=== PATIENT | male | born 1995 | race Caucasian/White ===

== ENCOUNTER 2019-08-03 08:06 | Emergency (ER) | payer OTHER ==
[~2019-08-03] VITALS: Ht 172.7 cm; Wt 68.0 kg
[~2019-08-03 08:06] MED LIST: ALBUTEROL0.09 MG/A2 INH; ANTIBIOTIC; ASENDIN25 MG PO; BACTRIM DS 8001 TA1 PO; BACTROBAN OINT22 GM PO; BIAXIN500 MG PO; CLARITIN10 MG PO; CLINDAMYCIN HC150 MG PO; CLINDAMYCIN HC300 MG PO; CLINDAMYCIN150 MG PO; DEPRESSION PILL; FLEXERIL10 MG PO; HYDROCODONE BIT1 T11 PO; KEFLEX500 MG PO; LAMICTAL25 MG PO; LITHIUM CARBON600 MG; LORATADINE; MOTRIN400 MG PO; MOTRIN600 MG PO; MOTRIN800 MG PO; NKHM PO; PREDNICOT20 MG PO; PREDNISONE20 MG PO; ULTRAM50 MG PO; XANAX1 MG PO; ZANTAC150 MG PO; ZITHROMAX Z PA250 MG PO; ZITHROMAX250 MG PO; ZYRTEC10 MG PO; [UNRECOGNIZED DRUG - REMARK]
[2019-08-03 08:08] VITALS: BP 121/79
[2019-08-03] MEDS ORDERED: CLARITIN10 MG PO (08:27)
[2019-08-03] MEDS ORDERED: BACITRACIN 500U30 GM OPH (08:27)
== END 2019-08-03 08:31 | disposition home or self-care (01) ==
LOC: ED 08:06
DX: S80.862A Insect bite (nonvenomous), left lower leg, initial encounter (principal); S80.861A Insect bite (nonvenomous), right lower leg, initial encounter; J45.909 Unspecified asthma, uncomplicated; F17.200 Nicotine dependence, unspecified, uncomplicated; Z88.0 Allergy status to penicillin; W57.XXXA Bitten or stung by nonvenomous insect and other nonvenomous arthropods, initial encounter; Y93.89 Activity, other specified; Y92.89 Other specified places as the place of occurrence of the external cause; Y99.8 Other external cause status

== ENCOUNTER 2019-12-11 12:15 | Emergency (ER) | payer OTHER ==
[~2019-12-11] VITALS: Ht 172.7 cm; Wt 63.5 kg
[~2019-12-11 12:15] MED LIST changes: +BACITRACIN 500U30 GM OPH
[2019-12-11 12:24] VITALS: BP 127/77
[2019-12-11] MEDS ORDERED: ULTRAM50 MG PO (15:10)
== END 2019-12-11 15:14 | disposition home or self-care (01) ==
LOC: ED 12:15
DX: S62.396A Other fracture of fifth metacarpal bone, right hand, initial encounter for closed fracture (principal); J45.909 Unspecified asthma, uncomplicated; K21.9 Gastro-esophageal reflux disease without esophagitis; Z88.0 Allergy status to penicillin; W22.01XA Walked into wall, initial encounter; Y93.89 Activity, other specified; Y92.89 Other specified places as the place of occurrence of the external cause; Y99.8 Other external cause status

== ENCOUNTER 2020-06-27 13:45 | Emergency (ER) | payer SELFPAY ==
[2020-06-27 13:46] VITALS: BP 119/84
[2020-06-27 14:29] LABS: BASO # 0.1 10*3/uL (0.0-0.1); BASO % 0.5 % (0.0-1.0); EOS # 0.2 10*3/uL (0.0-0.4); EOS % 1.6 % (1.0-4.0); HEMATOCRIT 42.4 % (42.0-52.0); LYMPH # 1.8 10*3/uL (1.3-4.4); LYMPH % 18.4 % (27.0-41.0); MEAN CELL VOLUME 87.8 fl (80.0-94.0); MEAN CORPUSCULAR HGB 30.2 pg (27.0-31.0); MEAN CORPUSCULAR HGB CONC 34.4 g/dl (33.0-37.0); MEAN PLATELET VOLUME 10.2 fl (9.6-12.3); MONO # 0.6 10*3/uL (0.1-1.0); MONO % 6.5 % (3.0-9.0); NEUT # 7.2 10*3/uL (2.3-7.9); NEUT % 72.7 % (47.0-73.0); PLATELET COUNT AUTOMATED 267 10*3/uL (130-400); RED BLOOD COUNT 4.83 10*6/uL (4.50-5.90); RED CELL DISTRI WIDTH 11.5 % (0-14.5); WHITE BLOOD COUNT 9.8 10*3/uL (4.8-10.8)
[2020-06-27 14:32] LABS: BILIRUBIN NEGATIVE (NEGATIVE); BLOOD NEGATIVE (NEGATIVE); CLARITY CLEAR (CLEAR); COLOR YELLOW (YELLOW); GLUCOSE NEGATIVE (NEGATIVE); KETONE TRACE (NEGATIVE); LEUKO ESTERASE NEGATIVE (NEGATIVE); NITRITE NEGATIVE (NEGATIVE)
[2020-06-27 14:36] LABS: RBC 0-2 rbc/hpf (0-2); WBC 0-2 wbc/hpf (0-5)
[2020-06-27 14:37] LABS: BACTERIA TRACE; EPITHELIAL CELLS 0-2
[2020-06-27 14:39] LABS: URINE AMPHETAMINES < 1000 (1000ng/ml); URINE BARBITURATES < 200 (200ng/ml); URINE BENZODIAZEPINES < 200 (200ng/ml); URINE CANNABINOIDS (THC) > 50 (50ng/ml); URINE COCAINE < 300 (300ng/ml); URINE METHADONE < 300 (300ng/ml); URINE OPIATES < 300 (300ng/ml); URINE PHENCYCLIDINE < 25 (25ng/ml)
[2020-06-27 14:45] LABS: ALBUMIN 3.8 gm/dl (3.1-4.5); ALKALINE PHOSPHATASE 60 U/L (45-117); BUN 14 mg/dl (7-24); CHLORIDE 107 mmol/L (98-107); CREATININE 0.98 mg/dL (0.70-1.30); LIPASE 84 U/L (73-393); POTASSIUM 3.8 mmol/L (3.5-5.1); SGOT/AST 17 IU/L (3-35); SGPT/ALT 22 U/L (12-78); SODIUM 135 mmol/L (136-145); TOTAL PROTEIN 7.6 gm/dL (6.4-8.2)
== END 2020-06-27 15:09 | disposition home or self-care (01) ==
LOC: ED 13:45
PROVIDERS: Emergency Medicine
DX: R10.9 Unspecified abdominal pain (principal); J45.909 Unspecified asthma, uncomplicated; F31.9 Bipolar disorder, unspecified; K21.9 Gastro-esophageal reflux disease without esophagitis; Z88.0 Allergy status to penicillin; Z79.899 Other long term (current) drug therapy

== ENCOUNTER 2021-05-02 19:26 | Emergency (ER) | payer OTHER ==
[~2021-05-02] VITALS: Ht 172.7 cm; Wt 68.0 kg
[2021-05-02 19:38] VITALS: BP 133/73
[2021-05-02] MEDS ORDERED: MEDROL DOSEPAK4 MG PO (21:17)
== END 2021-05-02 21:35 | disposition home or self-care (01) ==
LOC: ED 19:26
DX: L25.9 Unspecified contact dermatitis, unspecified cause (principal); F17.200 Nicotine dependence, unspecified, uncomplicated; Z88.0 Allergy status to penicillin; Z79.899 Other long term (current) drug therapy; Z98.890 Other specified postprocedural states

== ENCOUNTER 2021-05-26 18:52 | Emergency (ER) | payer OTHER ==
[~2021-05-26] VITALS: Ht 172.7 cm; Wt 72.6 kg
[~2021-05-26 18:52] MED LIST changes: +MEDROL DOSEPAK4 MG PO
[2021-05-26 19:08] VITALS: BP 127/79
[2021-05-26] MEDS ORDERED: NAPROSYN500 MG PO (20:35)
[2021-05-26] MEDS ORDERED: METHOCARBAMOL750 M1 PO (20:35)
== END 2021-05-26 20:53 | disposition home or self-care (01) ==
LOC: ED 18:52
DX: S39.011A Strain of muscle, fascia and tendon of abdomen, initial encounter (principal); Z88.0 Allergy status to penicillin; X50.0XXA Overexertion from strenuous movement or load, initial encounter; Y93.89 Activity, other specified; Y92.89 Other specified places as the place of occurrence of the external cause; Y99.9 Unspecified external cause status

== ENCOUNTER 2024-10-28 12:00 | Emergency (ER) | payer SELFPAY ==
[~2024-10-28] VITALS: Ht 172.7 cm; Wt 68.0 kg
[~2024-10-28 12:00] MED LIST changes: +METHOCARBAMOL750 M1 PO; +NAPROSYN500 MG PO
[2024-10-28 12:19] VITALS: BP 129/60
== END 2024-10-28 12:47 | disposition home or self-care (01) ==
LOC: ED 12:00
DX: B37.0 Candidal stomatitis (principal); Z88.0 Allergy status to penicillin

== ENCOUNTER 2025-03-29 12:55 | Emergency (ER) | payer SELFPAY ==
[~2025-03-29] VITALS: Ht 172.7 cm
[2025-03-29 13:15] VITALS: BP 119/68
[2025-03-29] MEDS ORDERED: methylPREDNISolone sod succ 125 MG VIAL IM ONE (13:20)
[2025-03-29] MEDS ORDERED: Ketorolac Tromethamine 30 MG/ML VIAL IM ONE (13:20)
[2025-03-29] MEDS ORDERED: NAPROSYN500 MG PO (14:22)
[2025-03-29] MEDS ORDERED: CYCLOBENZAPRINE5 M3 PO (14:22)
== END 2025-03-29 14:31 | disposition home or self-care (01) ==
LOC: ED 12:55
DX: S39.012A Strain of muscle, fascia and tendon of lower back, initial encounter (principal); Z88.0 Allergy status to penicillin; X50.1XXA Overexertion from prolonged static or awkward postures, initial encounter; Y93.89 Activity, other specified; Y92.89 Other specified places as the place of occurrence of the external cause; Y99.8 Other external cause status

== ENCOUNTER 2025-06-12 21:17 | Emergency (ER) | payer SELFPAY ==
[~2025-06-12] VITALS: Ht 172.7 cm; Wt 68.0 kg
[~2025-06-12 21:17] MED LIST changes: +CYCLOBENZAPRINE5 M3 PO
[2025-06-12 21:45] VITALS: BP 119/79
[2025-06-12] MEDS ORDERED: VIBRAMYCIN100 MG PO (22:04)
[2025-06-12] MEDS ORDERED: Acetaminophen/Hydrocodone HP 10/325 PO ONE (22:20)
== END 2025-06-12 22:23 | disposition home or self-care (01) ==
LOC: ED 21:17
DX: L03.114 Cellulitis of left upper limb (principal); J45.909 Unspecified asthma, uncomplicated; K21.9 Gastro-esophageal reflux disease without esophagitis; F31.9 Bipolar disorder, unspecified; Z79.899 Other long term (current) drug therapy; Z88.0 Allergy status to penicillin; Z98.890 Other specified postprocedural states